=== PATIENT | female | born 1980 | race Caucasian/White ===

== ENCOUNTER 2023-05-24 14:15 | Outpatient (RCR) | payer OTHER, SELFPAY ==
--- NOTE | 2023-04-12 11:25 | PCPTNOTE ---
Patient called & cancelled scheduled appointment this date due to other commitments
--- NOTE | 2023-04-20 12:07 | OPREHPOC ---
Outpatient Therapy Plan of Care This is a Multidisciplinary Plan of Care that may contain components documented by all disciplines (PT, OT, and ST.) PT Problem 1 PT Problem #1 Knowledge Deficit PT Goal 1 Goal Patient will demonstrate independence with home exercise program PT Problem 2 PT Problem #2 Pain PT Goal 1 Goal 1. Patient will report pain as 2/10 with walking. 2. Patient will report decrease radicular symptoms into bilateral lower extremities. PT Problem 3 PT Problem #3 Impaired Strength PT Goal 1 Goal 1. Patient will perform 15 reps bilateral straight leg raises 2. Patient will perform 15 reps prone hip extension PT Problem 4 PT Problem #4 Impaired Endurance PT Goal 1 Goal 1. Patient will tolerate sitting upright at home for 30 minutes at a time due to relief in pain.
--- NOTE | 2023-04-20 12:07 | PTOPEVAL1 ---
Assessment and note entered by Basilia Guerrero, PT Evaluation Information Assessment Status Evaluation Diagnosis back Onset 1-2 months ago Subjective Information Patient referred to physical therapy due to back pain. Patient reports 1-2 months ago she bent over and heard a pop and was in such severe pain that she had to be Alice lifted out of bed into the ambulance. Patient reports that with immobility her pain can decrease however with sitting or walking pain increases. Patient currently reports pain as 6/10 in low back with shooting pain into bilateral hips and legs with L more so than R. Patient back pain has caused patient to spent increased time in bed, unable to perform daily chores secondary to pain. Patient reports she has anxiety as well. Subjective portion of eval performed with patient in sidelying due to pain. Patient goal is to decrease back pain and return to activity within home. Reported Pain Level Pain Score 6: Self Report Assessment PT Clinical Summary Patient is 42 year old female referred to physical therapy due to back pain. Patient reports pain currently limits her ability to ambulate in home or community as well as perform daily chores at home. Patient states she spends majority of her day laying in bed because supine is the only position that provides relief. Patient presents with decreased lumbar mobility, bilateral lower extremity and core weakness, radicular symptoms into bilateral lower extremities at this time. Anxiety and muscle guarded reported by patient throughout session, stating she does not know how to relax her body and feels her muscles being tight. Patient reporting pain as 6/10 start of session, decreased to 2/10 with manual techniques, heat, and therapeutic exercise. Patient would benefit from skilled PT services 2x/wk for 4 weeks for core/lower extremity strengthening, lumbar/ lower extremity mobility, manual techniques in order to reduce pain and allow patient to return to prior level of function. Plan of Care Interventions Aquatic Therapy,Electrical Stimulation,Gait Training,Hot Pack/Cold Pack,Manual Therapy,Neuro Re-education,Patient/Caregiver Education,Therapeutic Activities,Therapeutic Exercise,Ultrasound Other Interventions cupping, taping, iastm PT Services Indicated
--- NOTE | 2023-04-24 09:28 | PCPTNOTE ---
Pt. fell and hurt her ankle and canceled today's (04/24/23) appointment.
--- NOTE | 2023-04-25 11:44 | PCPTNOTE ---
Returned patient's phone call regarding if she can continue doing back exercises after her fall. Patient educated that she is ok to do breathing exercise, single knee to chest, and hip abduction at this time as patient denies back or hip involvement with fall. Patient educated to call MD if pain in ankle worsens or spreads to other area.
--- NOTE | 2023-05-01 11:15 | PCPTNOTE ---
Patient canceled 05/01/23 appointment as she had another fall and wants to follow-up with her physician.
--- NOTE | 2023-05-01 11:28 | PCPTNOTE ---
Physical therapist called patient per patient's and front desks request as the patient's physical therapist was off today. The patient was told she can go to the MD is she feels likes she needs to as she is having falls. Patient also told she can use a walker if she feels like she needs to use on for safety to prevent further falls. Patient also was instructed on how to go up and down her one step with a walker.
--- NOTE | 2023-05-18 10:29 | PTOPPROG ---
Assessment and note entered by Basilia Guerrero, PT Evaluation Information Assessment Status Progress Diagnosis low back pain Onset 1-2 months ago Subjective Information Patient has had limited therapy since initial evaluation due to frequent falls and transportation problems. Patient reports she has figured out a way to ensure transportation with her son and would like to continue with therapy. Patient goals are to decrease back and hip pain. Patient has began to use walker due to falls since being evaluated by therapy, reports 2 falls occurred on stairs and 2 were forward falls. Assessment PT Clinical Summary Re evaluation completed on this date. Patient continues to report significant back pain, anxiety noted throughout re eval. Patient continues to present with core and lower extremity weakness, decrease muscle length of hamstring/piriformis musculature. Patient has had frequent falls recently and has began to use walker for mobility. Recommending continued therapy services 1-2x/wk for 4 weeks to decrease pain and improve safety with mobility in community. Goal upgraded to include balance impairments with goal to return to ambulation without AD. Plan of Care Interventions Electrical Stimulation,Gait Training,Hot Pack/Cold Pack,Manual Therapy,Neuro Re-education,Patient/ Caregiver Education,Therapeutic Activities, Therapeutic Exercise,Ultrasound Other Interventions cupping, taping, iastm PT Services Indicated Yes Treatment Frequency and 1-2x/wk for 4 weeks Duration These treatments will address the objective and functional deficits as defined above. The patient will be advanced safely and appropriately in order for the patient to progress towards his/her prior level of function. Additional exercises will be introduced and as well as a comprehensive home exercise program upon discharge, if needed, ?to ensure carryover of functional gains achieved in the clinic. This treatment plan has been reviewed and agreement upon by the patient.
--- NOTE | 2023-05-18 10:29 | OPREHPOC ---
Outpatient Therapy Plan of Care This is a Multidisciplinary Plan of Care that may contain components documented by all disciplines (PT, OT, and ST.) PT Problem 1 PT Problem #1 Knowledge Deficit PT Goal 1 Goal Patient will demonstrate independence with home exercise program Progress Partially Met PT Problem 2 PT Problem #2 Pain PT Goal 1 Goal 1. Patient will report pain as 2/10 with walking.- not met goal continues 2. Patient will report decrease radicular symptoms into bilateral lower extremities.- not met goal continues PT Problem 3 PT Problem #3 Impaired Strength PT Goal 1 Goal 1. Patient will perform 15 reps bilateral straight leg raises- not met goal continues 2. Patient will perform 15 reps prone hip extension- not met goal continues PT Problem 4 PT Problem #4 Impaired Endurance PT Goal 1 Goal 1. Patient will tolerate sitting upright at home for 30 minutes at a time due to relief in pain.- not met goal continues PT Problem 5 PT Problem #5 Impaired Balance PT Goal 1 Goal 1. Patient will report now falls since re evaluation. 2. Patient will return to gait without AD. 3. Patient will ascend/descend 2 steps with supervision.
--- NOTE | 2023-06-01 10:19 | PCPTNOTE ---
05/18 PT charge error. PT high complexity eval code has been removed.
--- NOTE | 2023-06-27 13:11 | PTOPDC ---
Assessment and note entered by Basilia Guerrero, PT Evaluation Information Assessment Status Discharge - Pt Not Present Diagnosis low back pain Onset 1-2 months ago Subjective Information Patient has had limited therapy since initial evaluation due to frequent falls and transportation problems. Patient reports she has figured out a way to ensure transportation with her son and would like to continue with therapy. Patient goals are to decrease back and hip pain. Patient has began to use walker due to falls since being evaluated by therapy, reports 2 falls occured on stairs and 2 were forward falls. Assessment PT Clinical Summary Patient referred to PT due to back pain. Patient has shown up for one visit since progress update and has since not shown for therapy visits. Will DC from PT at this time. Plan of Care PT Services Indicated Yes
== END 2023-06-27 14:40 | disposition home or self-care (01) ==
LOC: ANHPT 14:15
PROVIDERS: PCP Physician Assistant; Visit Provider Physician Assistant
DX: M54.42 Lumbago with sciatica, left side (principal); M54.41 Lumbago with sciatica, right side; G89.29 Other chronic pain
CPT/HCPCS: 97110; 97140; 97162; 97163; 97530; 99199

== ENCOUNTER 2025-08-10 14:09 | Emergency (ER) | payer OTHER, SELFPAY ==
--- NOTE | ~2025-08-10 | XR_ITS ---
EXAMINATION: XR chest 2V, 08/10/2025 14:38 CDT HISTORY: chest pain COMPARISON: No comparisons available. Technique: 2 views obtained. Findings: The lungs are clear, no effusion. No pneumothorax. Heart is normal size. Mediastinal and hilar contours are within normal limits. Bony thorax no acute abnormality. Impression: No acute cardiopulmonary abnormality. Reviewed, dictated and finalized at location P. Impression: No acute cardiopulmonary abnormality.
[2025-08-10 14:13] VITALS: BP 130/65; PULSE 88; RESP 20; TEMP 36.4; O2SAT 96
--- NOTE | 2025-08-10 14:20 | ECG_ITS ---
Test Date: 2025-08-10 14:24:18 Measurements Intervals [place] Rate: 92 P: 43 TN: 161 QRS: 8 QRSD: 91 T: 11 QT: 363 QTc: 450 Interpretive Statements SINUS RHYTHM DELAYED PRECORDIAL R/S TRANSITION BORDERLINE T WAVE ABNORMALITY- ANT/INF LEADS BORDERLINE ECG No previous ECG available for comparison Electronically Signed On 08-10-2025 19:25:26 CDT by Varghese Yao D.O.
[2025-08-10 14:39] LABS: Hematocrit 41.0 % (37.0-47.0); Hemoglobin 14.0 g/dL (12.0-15.0); Immature Granulocyte Percent A 0.3 % (0-0.5); Lymphocytes Absolute Auto 2.68 K/mm3 (0.9-3.2); Mean Corpuscular HGB Conc 34.1 g/dl (32-36); Mean Corpuscular Hemoglobin 30.0 pg (26-34); Mean Corpuscular Volume 87.8 fl (80-100); Nucleated Red Blood Cells Absolute Auto 0.000 K/mm3 (0.0-0.012); Nucleated Red Blood Cells Perc 0.0 % (0.0-0.2); Platelet Count Result 295 k/mm3 (150-375); Red Blood Count 4.67 M/mm3 (4.2-5.4); White Blood Count 11.0 K/mm3 (4.5-10.0)
[2025-08-10 14:50] LABS: INR 1.0; Prothrombin Time 13.1 Seconds (11.1-14.7)
[2025-08-10 14:51] LABS: Partial Thromboplastin Time 25.3 Seconds (22.3-36.8)
[2025-08-10 15:00] LABS: Alanine Aminotransferase 23 U/L (6-35); Albumin Level 3.7 g/dL (3.5-5.1); Alkaline Phosphatase 118 U/L (38-126); Anion Gap 9 mmol/L (4-12); Aspartate Amino Transferase 23 U/L (14-36); Bilirubin,Total 0.5 mg/dL (0.2-1.3); Blood Urea Nitrogen 7 mg/dL (7-17); Calcium 9.5 mg/dL (8.4-10.2); Carbon Dioxide 20 mmol/L (22-30); Chloride 105 mmol/L (98-107); Estimated CRCL calculation 112 ml/min; Estimated Glomerular Filt Rate > 60; Glucose 129 mg/dL (65-110); Lipase 53 U/L (23-300); Potassium 3.7 mmol/L (3.4-5.0); Sodium 134 mmol/L (137-145); Total Protein 7.2 g/dL (6.3-8.2)
[2025-08-10 15:07] LABS: Troponin I < 0.012 ng/mL (0.000-0.034)
--- OUTSIDE RECORDS SUMMARY | 2025-08-10 15:33 | XMS_ITS | Encounter Summary ---
Author Organization [facility] Address [address] [place] [address] Phone Care Team Providers Care Stage Technician Name Role Phone Sonali Retana Primary Care Provider + Reason for Visit * Reason Comments Medication Refill Encounter Details Date Type Department Care Team (Late st Contact Info) Description 04/20/2021 Refill [facility] [address] [place] [id number] Sonali Retana, PAC [address] [place] [address] Medication Refill Social History Tobacco Use Types Packs/Day Years Used Date Smoking Tobacco: Every Day Cigarettes 1 23 Smokeless Tobacco: Never Alcohol Use Standard Drinks/Week Comments No 0 (1 standard drink = 0.6 oz pur e alcohol) PHQ-2 Answer Date Recorded Total Score - Questions 1-9 0 06/2020 Education Answer Date Recorded What is the highest level of school you have completed or the highest degree you have received? Bachelor's degree (e.g., BA, AB, BS) 08/06/2020 Sexually Active Control Partners Comments Yes Female Comments No Sex and Gender Information Value Date Recorded Sex Assigned at Not on file Legal Sex Female 10:17 PM CDT Gender Identity Not on file Sexual Orientation Not on file documented as of this encounter Miscellaneous Notes * Telephone Encounter - Tequila Costa RN - 04/20/2021 11:16 AM CDT Medication failed the protocol, provider to review and approve the medication order if appropriate. Last OV 03/09/21, F/U None, Last Vitamin D lab 09/25/20 result 14, no future labs, Last Rx Vitamin D 12/22/20, Last Rx per [place] PDMP Review Clonazepam 03/20/21 Tequila SUAZO Requested Prescriptions Pending Prescriptions Disp Refills ergocalciferol (VITAMIN D) 05518 UNIT Capsule [Pharmacy Med Name: VITAMIN D2 1.25MG(50,000 UNIT)] 4Capsule 2 Sig: TAKE 1 CAP BY MOUTH ONCE A WEEK FOR 12 DOSES. [facility] Off-Protocol Failed - 04/20/2021 11:14 AM Failed - Medication not assigned to a protocol, review manually. Passed - Valid encounter within last 12 months Past Office Visits Recent Outpatient Visits 1 month ago Sinusitis, unspecified chronicity, unspecified location [facility] Sonali Boyd PAC 4 months ago Irregular menses [facility] Sonali Boyd PAC 6 months ago Shortness of breath [facility] Sonali Boyd PAC 6 months ago COVID-19 [facility] Sonali Boyd PAC 6 months ago COVID-19 [facility] [place] Upcoming Appointments [facility] - Recent and Past Visits Recent Visits Date Type Provider Dept 03/09/21 Sonali Causey PAC [facility] 11/30/20 Office Visit Sonali Retana, PAC [facility] 10/19/20 Telemedicine Sonali Retana PAC [facility] 10/16/20 Telemedicine Sonali Retana, PAC [facility] 10/07/20 Telemedicine Sonali Retana, PAC [facility] 09/23/20 Office Visit Sonali Retana, PAC [facility] 08/06/20 Telemedicine Sonali Retana, PAC [facility] 07/14/20 Office Visit Sonali Retana, PAC [facility] 05/12/20 Office Visit Sonali Retana, PAC [facility] 03/04/20 Telemedicine Sonali Retana, PAC [facility] Showing recent visits within past 460 days with a meds authorizing provider and meeting all other requirements Future Appointments No visits were found meeting these conditions. Showing future appointments within next 90 days with a meds authorizing provider and meeting all other requirements clonazePAM (KlonoPIN) 0.5 MG Tablet [Pharmacy Med Name: CLONAZEPAM 0.5 MG TABLET] 90 Tablet 0 Sig: TAKE 1 TABLET BY MOUTH THREE TIMES A DAY [facility] Not Delegated - Psychiatry: [employer] - clonazepam Failed - 04/20/2021 11:14 AM Failed - This refill cannot be delegated Passed - Valid encounter within last 6 months Past Office Visits Recent Outpatient Visits 1 month ago Sinusitis, unspecified chronicity, unspecified location [facility] Sonali Boyd PAC 4 months ago Irregular menses [facility] [place] 6 months ago Shortness of breath [facility] Sonali Boyd PAC 6 months ago COVID-19 [facility] [place] 6 months ago COVID-19 [facility] [place] Upcoming Appointments [facility] - Recent and Past Visits Recent Visits Date Type Provider Dept 03/09/21 Sonali Causey, PAC [facility] 11/30/20 Office Visit Sonali Retana, PAC [facility] 10/19/20 Telemedicine Sonali Retana, PAC [facility] 10/16/20 Telemedicine Sonali Retana, PAC [facility] 10/07/20 Telemedicine Sonali Retana, PAC [facility] 09/23/20 Office Visit Sonali Retana, PAC [facility] 08/06/20 Telemedicine Sonali Retana, PAC [facility] 07/14/20 Office Visit SoniaSonali shannon, PAC [facility] 05/12/20 Office Visit SauloSonali vega, KVNG [facility] 03/04/20 Telemedicine MazinSonaliRosanne, PAC [facility] [place] Showing recent visits within past 460 days with a meds authorizing provider and meeting all other requirements Future Appointments No visits were found meeting these conditions. Showing future appointments within next 90 days with a meds authorizing provider and meeting all other requirements documented in this encounter Plan of Treatment Upcoming Encounters Date Type Department Care Team (Late st Contact Info) Description 08/27/2025 10:00 AM CDT Office Visit [facility] [address] [place] [address] Sonali Retana PAC [address] [place] [address] Sabas Mukherjee MD [address] [id number] 09/23/2025 3:40 PM PUBLIC HEALTH TECHNOLOGIST Office Visit [facility] [place] [address] [place] [address] Sonali Retana PAC [address] [place] [address] documented as of this encounter Visit Diagnoses Diagnosis Low vitamin D level Anxiety Anxiety state, unspecified documented in this encounter Additional Health Concerns Infection Onset Date Last Indicated Resolved Time COVID - 19 10/25/2021 10/25/2021 11/14/2021 12:1 6 AM PUBLIC HEALTH TECHNOLOGIST COVID - 19 12/13/2022 12/13/2022 12/14/2022 8:04 AM PUBLIC HEALTH TECHNOLOGIST Assessment Noted Time PHQ-9 Depression Total Score: 0 07/14/20 20 4:06 PM CDT documented as of this encounter Care Teams Stage Technician Relationship Specialty Start Date End Date Sonail Retana, KVNG [address] [place] [address] PCP - General Physician Special Weapons Unit Officer 10/19/18 documented as of this encounter
--- OUTSIDE RECORDS SUMMARY | 2025-08-10 15:33 | XMS_ITS | Clinical Summary ---
Author Organization [facility] Address [address] [place] [address] Phone Care Team Providers Care Hydramatic Mechanic Name Role Phone SaulojoaoSonali shannon KVNG Primary Care Provider + Allergies Active Allergy Reactions Criticality Noted Date Comments Codeine Nausea,Vomiting Low 12/14/2015 Reaction: Nausea, Vomiting, Risperidone Hallucinations 01/06/2021 Medications FLUoxetine (PROZAC) 40 MG Capsule Take 80 mg by mouth daily. Active QUEtiapine (SEROquel) 25 MG Tablet Take 25 mg by mouth 2 times daily. Active busPIRone HCl (BUSPAR) 30 MG Tablet Take 30 mg by mouth 2 times daily. 3 Active ergocalciferol (VITAMIN D) 80933 UNIT CapsuleIndicati ons:Low vitamin D level TAKE 1 CAPSULE BY MOUTH ONE TIME PER WEEK 4 Capsule 2 5 Active famotidine (PEPCID) 20 MG Tablet TAKE 1 TABLET BY MOUTH TWICE A DAY 60 Tablet 5 5 Active buPROPion SR (WELLBUTRIN SR) 100 MG TABLET SR 12 HR 5 Active atorvastatin (LIPITOR) 20 MG TabletIndicatio ns:Hyperlipidem ia Take 1 Tablet by mouth nightly. Indications: High Amount of Fats in the Blood 90 Tablet 3 5 Active fluticasone (FLONASE) 50 MCG/ACT Suspension 2 Sprays by Nasal route daily. Use in each nostril as directed. 18.2 mL 3 5 Active clonazePAM (KlonoPIN) 1 MG TabletIndicatio ns:Anxiety Take 1 Tablet by mouth 3 times daily. 90 Tablet 5 Active clonazePAM (KlonoPIN) 1 MG TabletIndicatio ns:Anxiety Take 1 Tablet by mouth 3 times daily. 90 Tablet 5 07/19/20 25 Discontinu ed(Reorder ) Active Problems Problem Noted Date Diagnosed Date Hyponatremia 12/14/2022 Intractable back pain 12/13/2022 GERD (gastroesophageal reflux disease) 3 Acute bilateral low back pain with bilateral sci atica 12/13/2022 Menorrhagia with regular cycle 04/16/2018 Anxiety 01/20/2016 Depressed 01/20/2016 Tobacco dependence syndrome 01/20/2016 Irritable bowel syndrome with diarrhea 6 Encounters Date Type Department Care Team Description 07/19/2025 MyChart [facility] [place] [address] Sonali Retana PAC Medication Renewal Reviewed 06/18/2025 Telephone [facility] Mammography [address] [place] [address] Sonali Retana PAC 06/16/2025 11:00 AM CDT [facility] [place] [address] Sonali Retana PAC Anxiety (Primary Dx); High risk medication use; Hyperlipidemia, unspecified hyperlipidemia type; Breast pain; Dysfunction of both eustachian tubes; Vitamin D deficiency Discharge Disposition: Discharged to home or Selfcare 06/16/2025 MyChart [facility] [place] [address] Sonali Retana PAC Medication Renewal Reviewed 06/14/2025 Travel 06/08/2025 [facility] [place] [address] Sonali Retana, PAC Medication Refill 06/06/2025 Refill [facility] [place] [address] Sonali Retana, PAC Medication Refill from Last 3 Months Immunizations Immunization Administration Dates Next Due Covid-19, Mrna, Lnp-s, Pf, 3 0 Mcg/0.3 Ml Dose (WeGame) 06/15/2021,05/25/2021 Influenza Vaccine, Quadrivalent, PF 09/07,07/14/2020,08/15/2019,2017 MMR Vaccine 08/11/2020,07/14/2020 Family History Medical History Relation Name Comments Alcohol Abuse Father Asthma Father Endometriosis Maternal Aunt 1 Zenaida Endometriosis Maternal Aunt 2 Zenaida Diabetes Maternal Grandmother Alcohol Abuse Mother Mom Cancer Mother Mom from low g rade serous ovarion cancer Depression Mother Mom Osteoarthritis Mother Mom Rashes/Skin Problems Mother Mom Rheumatoid Arthritis Mother Mom Relation Name Status Comments Father Alive Maternal Aunt 1 Zenaida Alive Maternal Aunt 2 Zenaida Alive Maternal Grandmother Alive Mother Mom Alive Social History Tobacco Use Types Packs/Day Years Used Date Smoking Tobacco: Every Day Cigarettes 1 23 Last attempted to quit: 02/12/2020 Smokeless Tobacco: Never Tobacco Cessation:Ready to Q uit: Yes; Counseling Given: Not Answered Comments:Iris been smoking since i was 11 Alcohol Use Standard Drinks/Week Comments No 0 (1 standard drink = 0.6 oz pur e alcohol) [facility] Utilities Answer Date Recorded In the past 12 months has Data Impact, oil, or water Inductly threatened to shut off services in your home? Patient declined 04/21/2024 Social Connection and Isolation Panel Answer Date Recorded In a typical week, how many times do you talk on the phone with family, friends, or neighbors? Patient declined 04/21/2024 How often do you get togethe r with friends or relatives? Patient declined 04/21/2024 How often do you attend lutheran or scientology serv ices? Never 04/21/2024 Do you belong to any clubs o r organizations such as lutheran groups, unions, fraternal or athletic groups, or school groups? No 04/21/2024 How often do you attend meet ings of the clubs or organizations you belong to? Patient declined 04/21/2024 Are you , , di vorced, , never , or living with a partner? Never 04/21/2024 AUDIT-C Answer Date Recorded Q1: How often do you have a drink containing alcohol? Never 04/21/2024 Q2: How many drinks containi ng alcohol do you have on a typical day when you are drinking? Patient does not drink Q3: How often do you have si x or more drinks on one occasion? Never 04/21/2024 Overall Financial Resource Strain (CARDIA) Answe r Date Recorded How hard is it for you to pa y for the very basics like food, housing, medical care, and heating? Patient declined 04/21/2024 PHQ-2 Answer Date Recorded Total Score - Questions 1-9 18 10/07 [facility] - Occupational Stress Questionnaire Answer Date Recorded Do you feel stress - tense, restless, nervous, or anxious, or unable to sleep at night because your mind is troubled all the time - these days? Patient declined 04/21/2024 Exercise Vital Sign Answer Date Recorde d On average, how many days pe r week do you engage in moderate to strenuous exercise (like a brisk walk)? 0 days 04/21/2024 On average, how many minutes do you engage in exercise at this level? 0 min 04/21/2024 Hunger Vital Sign Answer Date Recorded Within the past 12 months, y ou worried that your food would run out before you got the money to buy more. Patient declined Within the past 12 months, t he food you bought just didn't last and you didn't have money to get more. Patient declined PRAPARE - Transportation Answer Date Re corded In the past 12 months, has l ack of transportation kept you from medical appointments or from getting medications? Yes 04/06 In the past 12 months, has l ack of transportation kept you from meetings, work, or from getting things needed for daily living? No 04/21/2024 Housing Stability Vital Sign Answer Lan e Recorded In the last 12 months, was t here a time when you were not able to pay the mortgage or rent on time? Patient declined 04/21/20 24 In the past 12 months, how m any times have you moved where you were living? 0 04/21/2024 At any time in the past 12 m [facility], were you homeless or living in a snf (including now)? No 04/21/2024 Education Answer Date Recorded What is the highest level of school you have completed or the highest degree you have received? Bachelor's degree (e.g., BA, AB, BS) 08/06/2020 Sexually Active Control Partners Comments Not Currently Abstinence Female, Male Comments No Sex and Gender Information Value Date Recorded Sex Assigned at Not on file Legal Sex Female 10:17 PM CDT Gender Identity Not on file Sexual Orientation Not on file Last Filed Vital Signs Vital Sign Reading Time Taken Comments Blood Pressure 130/84 06/16/2025 10:56 AM CDT Pulse 102 06/16/2025 10:56 AM CDT Temperature 36.6 C (97.8 F) 06/16/2025 10:56 AM CDT Respiratory Rate 18 02/15/2023 9:33 AM CDT Oxygen Saturation 96% 06/16/2025 10:56 AM CDT Inhaled Oxygen Concentration - - Weight 110.2 kg (243 lb) 06/16/2025 10:56 AM CDT Height 165.1 cm (5' 5) 06/16/2025 10:56 AM CDT Body Mass Index 40.44 06/16/2025 10:56 AM CDT Plan of Treatment Upcoming Encounters Date Type Department Care Team (Late st Contact Info) Description 08/27/2025 10:00 AM CDT [facility] Visit [facility] [place] [facility] [place] [place] [phone] Sonali Retana PAC [address] [place] [address] Sabas Mukherjee MD #2 [facility] [address] [address] 09/23/2025 3:40 PM FOUNTAIN CLERK Office Visit [facility] [place] [address] Sonali Retana, PAC [address] [place] [address] Health Maintenance Due Date Last Done Comments TdaP Immunization 1982 Hepatitis B Immunization (1 of 3 - 19+ 3-dose series) 2001 Pneumococcal Immunization Combined (1 of 2 - PCV) 2001 Human Papillomavirus (HPV) Immunization (1 - 3-dose SCDM series) 2009 Mammogram 10/17/2018 10/17/2017 Pap Smear 01/07/2024 01/06/2021, 11/2019, 05/12/2020, Additional history exists Cervical Cancer Screening (CCS) 05/12/2025 HPV/Cotest 05/12/2025 05/12/2020 Influenza Immunization (#1) 07/07/202509/07, 07/14/2020, 08/15/2019, Additional history exists SARS-COV-2 Immunization ( season) 2025 06/15/2021, 05/25/2021 Respiratory Syncytial Virus (RSV) Immunization (Adult) (1 - 1-dose 75+ series) 2057 Discussion re Starting/Frequency of Mammograms Completed 10/17/2017 Hepatitis C Virus (HCV) Screening Completed 11/16/2023 Meningococcal Immunization (ACWY) Aged Out No longer eligible based on patient's age to complete this topic Rotavirus Immunization Aged Out No lo nger eligible based on patient's age to complete this topic Medical Devices Implanted Type Area Boarding Room Fixer Device Identifier Shelf Expiration Date Model / Serial / Lot Mcpherson Beveled Grommet Tube, Fluoroplastic Implanted:Qty: 2 on 01/05/2017 by Mo Foster DO at [facility] Bilatera l: Ear [employer] 10/11/2024 [id number] / / [id number] Procedures Procedure Name Priority Date/Time Associated Diagnosis Comments URINE DRUG SCREEN Routine 06/16/2025 Anxiety High risk medication use HEPATITIS C ANTIBODY Routine 11/16/2023 10:33 AM FOUNTAIN CLERK Encounter for hepatitis C screening test for low risk patient HUMAN PAPILLOMA VIRUS (HPV) Routine 05/12/2020 3:44 PM CDT Well woman exam PATHOLOGY CYTOLOGY GAME TECHNICIAN Routine 05/12/2020 3:44 PM CDT Well woman exam ROSSY DIAG BILATERAL DIGITAL W CAD Routine 10/17/2017 Left breast mass from Last 3 Months or Most Recently Relevant to Health Maintenance Results * URINE DRUG SCREEN (06/16/2025) Urine 06/16/2025 us Sonali Retana PAC URINE ORDERABLES Final R esult * HEPATITIS C ANTIBODY (11/16/2023 10:33 AM FOUNTAIN CLERK) hepatitis C antibody 0.10 <1 S/CO [facility] ARCH [id number] 11/16/2023 9:40 PM FOUNTAIN CLERK [facility] Comment: Signal/Cutoff ratio < 0.79 is Nondetected Signal/Cutoff ratio 0.80-0.99 is Grayzone Signal/Cutoff ratio > 0.99 is Detected Supplemental assays are recommended if signal/cutoff ratio is >/=1.00. Signal/cutoff ratio result >/= 5.00 is 97% predictive of positivity for recombinant immunoblot assay (RIBA) and will be reported to the [place] Department of Public Health as required. Blood Venipuncture / Unknown 11/16/2023 10:33 AM FOUNTAIN CLERK 11/16/2023 10:33 AM FOUNTAIN CLERK us Sonali Retana PAC CHEMISTRY ORDERABLES Fin al Result [facility] [address] [place] [address], [place] * PATHOLOGY CYTOLOGY GAME TECHNICIAN (05/12/2020 3:44 PM CDT) SPECIMEN ADEQUACY Satisfactory for evaluation. Endocervical/transf ormation zone component is absent. 06/04/2020 2:18 PM CDT [facility] DESCRIPTIVE DIAGNOSIS NEGATIVE FOR INTRAEPITHELIAL LESIONS OR MALIGNANCY. 06/04/2020 2:18 PM CDT [facility] at 1418 CDT AUTOMATED EXAMINATION Analysis of this sample has been assisted by an automated imaging and review system ([employer] System, [employer], [place], [place]). This case is further evaluated and finalized by a pr intern and/or pathologist. 06/04/2020 2:18 PM CDT [facility] DISCLAIMER The PAP smear is a screening test designed to detect cancerous or precancerous cells of the uterine cervix. It is one of the best means available for detection of cervical cancer but still carries an inherent false-negative rate. The consequences of a false-negative PAP result can be minimized by adhering to current screening guidelines. The following are general guidelines recommended by the ACS, ASCP, ASCCP, and ACOG: PAP testing is recommended every three years for women 21-29, Co-Testing, a PAP test in conjunction with an HPV (Human Papillomavirus) test for women ages 30-65, and no PAP or HPV testing for women under the age of 21 or older than 65 unless clinically indicated. 06/04/2020 2:18 PM CDT [facility] Case Report Gynecologic Cytology Report Case: [id number] Authorizing Provider: Sonali Retana PAC Collected: 05/12/2020 03:44 PM Ordering Location: [facility] Received: 05/12/2020 03:44 PM [facility] First Screen: Shea Sheppard Rescreen: Aleksandr Morales Specimen: TP Screen, Cervix/Endocervix 06/04/2020 2:18 PM CDT [facility] HPV Reflex if ASCUS? No 06/04/2020 2:18 PM CDT [facility] Comment:cotesting Other CERVIX UTERI STRUCTURE / Unknown Non-Phlebotomy Collection / Unknown 05/12/2020 3:44 PM CDT 05/12/2020 3:44 PM CDT us Sonali Retana PAC PATHOLOGY/CYTOLOGY ORDER FLACO Final Result [facility] [address] [place] [address], [place] * (ABNORMAL) HUMAN PAPILLOMA VIRUS (HPV) (05/12/2020 3:44 PM CDT) HPV OTHER HIGH RISK TYPES, PCR POSITIVE(A) NEGATIVE 05/14/2020 3:11 PM CDT [facility] Comment: Positive for one or more of the following Other High HPV types: 31, 33, 35, 39, 45, 51, 52, 56, 58, 59, 66, and 68. False-positive results have been reported with molecular assays. If these positive results are discordant with clinical/cytohistologic findings, repeat testing may be considered after an appropriate interval. HPV TYPE 16 NEGATIVE NEGATIVE 05/14/2020 3:11 PM CDT [facility] Comment: A negative high-risk HPV result does not exclude the possibility of future cytologic HSIL or underlying CIN2-3 or cancer. The presence of PCR inhibitors may cause false negative or invalid results. If concentrations of whole blood in the sample exceed 1.5% (dark red or brown coloration) in PreservCyt solution, there is a likelihood of obtaining a false-negative result. HPV TYPE 18 NEGATIVE NEGATIVE 05/14/2020 3:11 PM CDT [facility] Comment: A negative high-risk HPV result does not exclude the possibility of future cytologic HSIL or underlying CIN2-3 or cancer. The presence of PCR inhibitors may cause false negative or invalid results. If concentrations of whole blood in the sample exceed 1.5% (dark red or brown coloration) in PreservCyt solution, there is a likelihood of obtaining a false-negative result. Other Non-Phlebotomy Collection / Unknown 05/12/2020 3:44 PM CDT 05/12/2020 3:44 PM CDT Narrative [facility] - 05/14/2020 3:11 PM CDT Performed by Real-Time Polymerase Chain Reaction (PCR) on the Jennifer Denise 4800. This assay has been validated for use with post-aliquot samples from the [employer] processor. us Rosanne Fritcher PAC LAB SEND OUTS Final Re sult [facility] [address] [place] [address], [place] * ROSSY DIAG BILATERAL DIGITAL W CAD (10/17/2017) Anatomical Region Laterality Modality breast Bilateral Mammography us Anni Rodriguez PAC IMG MAMMO ORDERABLES Raya l Result from Last 3 Months or Most Recently Relevant to Health Maintenance Insurance MEDICAID [place] Advance Directives * Full Code (Latest Code Status on File) Date Activated Date Inactivated Comments 12/27/2022 1:25 PM * Full Code Date Activated Date Inactivated Comments 12/13/2022 8:25 PM 12/14/2022 5:40 PM CPR-Full Treat ment: FULL ARREST: Attempt Resuscitation/CPR wit intubation and mechanical ventilation. PRE-ARREST: Use entire range of life support measures to stabilize the patient. Care Teams Hydramatic Mechanic Relationship Specialty Start Date End Date Sonali Retana, PAC [address] [place] [address] PCP - General Physician Bobcat Driver/Labor 10/19/18
--- OUTSIDE RECORDS SUMMARY | 2025-08-10 15:33 | XMS_ITS | Encounter Summary ---
Author Organization [facility] Address [address] [place] [address] Phone Care Team Providers Care Physics Technician Name Role Phone Sonali Retana KVNG Primary Care Provider + Encounter Details Date Type Department Care Team (Late st Contact Info) Description 09/22/2021 Lab Requisition [facility] Services [address] [place] [phone] Sharon Arguelles, SENIOR PAINTER, OBSTETRICS GYN [address] [place] [address] Encounter for pre-employment examination Social History Tobacco Use Types Packs/Day Years [...] on file documented as of this encounter Plan of Treatment Upcoming Encounters Date Type Department Care Team (Late st Contact Info) Description 08/27/2025 10:00 AM CDT Office Visit [facility] - Ear, N[facility] & [facility]at - [place] #2 [facility] [address] Sonali Retana, PAC #2 [place] [address] Sabas Mukherjee MD #[address] [address] 09/23/2025 3:40 PM PIPE FITTER Office Visit [facility] - Family Medicine - [place] #2 [place] [address] Sonali Retana, PAC [address]2 [place] [address] documented as of this encounter Procedures Procedure Name Priority Date/Time Associated Diagnosis Comments QUANTIFERON-TB GOLD PLUS Routine 09/22/2021 8:00 AM PIPE FITTER Encounter for pre-employment examination MMRV PANEL Routine 09/22/2021 8:00 AM PIPE FITTER Encounter for pre-employment examination MUMPS IGG Routine 09/22/2021 8:00 AM PIPE FITTER Encounter for pre-employment examination HERPES ZOSTER (VARICELLA) IGG Routine 09/22/2021 8:00 AM PIPE FITTER Encounter for pre-employment examination RUBEOLA (MEASLES) IGG Routine 09/22/2021 8:00 AM PIPE FITTER Encounter for pre-employment examination RUBELLA IMMUNITY IGG Routine 09/22/2021 8:00 AM PIPE FITTER Encounter for pre-employment examination HEPATITIS B SURFACE ANTIBODY (HBSAB) Routine 09/22/2021 8:00 AM PIPE FITTER Encounter for pre-employment examination documented in this encounter Results * HERPES ZOSTER (VARICELLA) IGG (09/22/2021 8:00 AM PIPE FITTER) VARICELLA ZOSTER IGG 4.9 >=1.1 AI 09/22/2021 9:33 PM PIPE FITTER [facility] Blood No Phlebotomy Charged / Unknown 09/22/2021 8:00 AM PIPE FITTER 09/22/2021 12:15 PM PIPE FITTER Narrative [facility] - 09/22/2021 9:33 PM PIPE FITTER <= 0.8 Negative. No detectable VZV IgG antibody. 0.9 - 1.0 Equivocal >=1.1 Positive Antibody testing was performed by multiplex flow immunoassay on the BioPlex platform. us Sharon Arguelles SENIOR PAINTER, OBSTETRICS GYN IMMUNOLOGY ORDERABL ES Final Result Performing Organization Address [facility] Co de Phone Number [facility] [address] [place] [address], [place] * RUBEOLA (MEASLES) IGG (09/22/2021 8:00 AM PIPE FITTER) MEASLES AB IGG 4.5 >=1.1 AI 09/22/2021 9:33 PM PIPE FITTER [facility] Blood No Phlebotomy Charged / Unknown 09/22/2021 8:00 AM PIPE FITTER 09/22/2021 12:15 PM PIPE FITTER Narrative [facility] - 09/22/2021 9:33 PM PIPE FITTER <= 0.8 Negative. No detectable Measles IgG antibody. 0.9 - 1.0 Equivocal >=1.1 Positive Antibody testing was performed by multiplex flow immunoassay on the BioPlex platform. us Sharon L Behrends SENIOR PAINTER, OBSTETRICS GYN IMMUNOLOGY ORDERABL ES Final Result Performing Organization Address City/[facility] Co de Phone Number [facility] [address] [place] [address], [place] * RUBELLA IMMUNITY IGG (09/22/2021 8:00 AM PIPE FITTER) RUBELLA IMMUNITY Immune Immune, Invalid 09/22/2021 9:33 PM PIPE FITTER [facility] Blood No Phlebotomy Charged / Unknown 09/22/2021 8:00 AM PIPE FITTER 09/22/2021 12:15 PM PIPE FITTER Narrative [facility] - 09/22/2021 9:33 PM PIPE FITTER Antibody testing was performed by multiplex flow immunoassay on the BioPlex platform. Sharon Arguelles APRN, OBSTETRICS GYN CHEMISTRY ORDERABLE S Final Result Performing Organization Address [facility] de Phone Number [facility] [address] [place] [address], [place] * MUMPS IGG (09/22/2021 8:00 AM PIPE FITTER) Mumps Ab IgG 3.4 >=1.1 AI 09/22/2021 9:33 PM PIPE FITTER [facility] Blood No Phlebotomy Charged / Unknown 09/22/2021 8:00 AM PIPE FITTER 09/22/2021 12:15 PM PIPE FITTER Narrative [facility] - 09/22/2021 9:33 PM PIPE FITTER <= 0.8 Negative. No detectable Mumps IgG antibody. 0.9 - 1.0 Equivocal >=1.1 Positive Antibody testing was performed by multiplex flow immunoassay on the BioPlex platform. Sharon Arguelles APRN, OBSTETRICS GYN IMMUNOLOGY ORDERABL ES Final Result Performing Organization Address [facility] de Phone Number [facility] [address] [place] [address], [place] * QUANTIFERON-TB GOLD PLUS (09/22/2021 8:00 AM PIPE FITTER) NIL CONTROL 0.03 <8.01 IU/mL 09/24/2021 12:44 PM PIPE FITTER [facility] TB ANTIGEN 1 0.00 <0.35 IU/mL 09/24/2021 12:44 PM PIPE FITTER [facility] TB ANTIGEN 2 0.00 <0.35 IU/mL 09/24/2021 12:44 PM PIPE FITTER [facility] MITOGEN CONTROL >10.00 >0.49 IU/mL 09/24/20 12:44 PM [facility] INTEPRETATION TB NEGATIVE NEGATIVE, NEGATIVE (TB antigen response less than 25% of internal negative control value) 09/24/2021 12:44 PM [facility] Comment:No immune response t o Mycobacterium tuberculosis antigens was noted. M. tuberculosis infection unlikely. Blood No Phlebotomy Charged / Unknown 09/22/2021 8:00 AM PIPE FITTER 09/22/2021 12:15 PM PIPE FITTER Narrative [facility] - 09/24/2021 12:44 PM PIPE FITTER A POSITIVE QUANTIFERON-TB GOLD PLUS RESULT SHOULD NOT BE THE SOLE OR DEFINITIVE BASIS FOR DETERMINING INFECTION WITH M. TUBERCULOSIS. Diagnosing or excluding tuberculosis disease, and assessing the probability of LTBI, requires a combination of epidemiological, historical, medical and diagnostic findings (e.g., acid fast bacilli (AFB) smear and culture, chest xray) that should be taken into account when interpreting QFT-Plus results. Furthermore, the magnitude of the measured gamma interferon level cannot be correlated to stage or degree of infection, level of immune responsiveness, or likelihood for progression to active disease. The Nil control adjusts for background (e.g., elevated levels of circulating gamma interferon or presence of heterophile antibodies). The Mitogen control serves as an internal positive control and verifies each specimen tested can produce a gamma interferon response. Low mitogen may occur with insufficient lymphocytes, reduced lymphocyte activity due to improper specimen handling, filling/mixing of the Mitogen tube, or inability of the patient's lymphocytes to generate gamma interferon. Infection with other Mycobacteria, including M. kansasii, M. szulgai, and M. marinum, may cause positive results. A negative QuantiFERON-TB Gold Plus result does not preclude the possibility of M. tuberculosis infection or tuberculosis disease: false negative results can be due to stage of infection (e.g., specimen obtained prior to the development of cellular immune response), co-morbid conditions which affect immune function, or other individual immunological factors. The minimum number of lymphocytes required for a reliable test result has not been established and may also be variable. The performance of the [place] format of the QuantiFERON-TB Gold Plus test has not been extensively evaluated with specimens from the following groups of individuals: 1. Individuals who have impaired or altered immune function such as those who have HIV infection or AIDS; those who have transplantation managed with immunosuppressive treatment; or others who receive immunosuppressive drugs (e.g., corticosteroids, methotrexate, azathioprine, cancer chemotherapy); and those who have other clinical conditions: diabetes, silicosis, chronic renal failure, hematological disorders (e.g., leukemia and lymphomas), and other specific malignancies (e.g., carcinoma of the head or neck and lung). 2. Individuals younger than age 17 years 3. women us Sharon Arguelles APRN, OBSTETRICS GYN IMMUNOLOGY ORDERABL ES Final Result Performing Organization Address City/[facility] Co de Phone Number [facility] [address] [place] [address], [place] * HEPATITIS B SURFACE ANTIBODY (HBSAB) (09/22/2021 8:00 AM PIPE FITTER) HEPATITIS B SURFACE ANTIBODY 8,310.22 mIU/mL [facility] ARCH [id number] 09/22/2021 10:20 PM PIPE FITTER [facility] Comment: Detected Range: >12.00 Individual is considered immune to HBV infection Blood No Phlebotomy Charged / Unknown 09/22/2021 8:00 AM PIPE FITTER 09/22/2021 12:15 PM PIPE FITTER us Sharon Arguelles APRN, OBSTETRICS GYN CHEMISTRY ORDERABLE S Final Result Performing Organization Address [facility] Co de Phone Number [facility] [address] [place] [address], [place] documented in this encounter Visit Diagnoses Diagnosis Encounter for pre-employment examination Health examination of defined subpopulation documented in this encounter Additional Health Concerns Infection Onset Date Last Indicated Resolved Time COVID - 19 10/25/2021 10/25/2021 11/14/2021 12:1 6 AM PIPE FITTER COVID - 19 12/13/2022 12/13/2022 12/14/2022 8:04 AM PIPE FITTER Assessment Noted Time PHQ-9 Depression Total Score: 0 07/14/20 4:06 PM CDT documented as of this encounter Care Teams Physics Technician Relationship Specialty Start Date End Date Sonali Retnaa, [facility] [address] [place] [address] PCP - General Physician Bathroom Tiling Professional 10/19/18 documented as of this encounter
--- OUTSIDE RECORDS SUMMARY | 2025-08-10 15:33 | XMS_ITS | Encounter Summary ---
Author Organization [facility] Address [address] [facility] [place] [address] Phone Care Team Providers Care Mine Geologist Name Role Phone Sonali Retana Primary Care Provider + Reason for Visit * Reason Comments Medication Refill Encounter Details Date Type Department Care Team (Late Contact Info) Description 11/19/2023 Refill [facility] #2 [place] [address] Sonali Retana PAC [address]2 [place] [address] Medication Refill Social History Tobacco Use Types Packs/Day Years Used Date Smoking Tobacco: Every Day Cigarettes 1 23 Smokeless Tobacco: Never Alcohol Use Standard Drinks/Week Comments No 0 (1 standard drink = 0.6 oz pur e alcohol) PHQ-2 Answer Date Recorded Total Score - Questions 1-9 18 10/07 Education Answer Date Recorded What is the [...] Encounters Date Type Department Care Team (Late Contact Info) Description 08/27/2025 10:00 AM CDT Office Visit [facility] - Ear, Nose & Throat [facility] #2 [facility] [address] Sonali Retana, PAC [address] [facility] [address] Sabas Mukherjee MD #[address] [address] 09/23/2025 3:40 PM CRANE HOIST OR LIFT OPERATOR Office Visit [facility] - Family Medicine [facility] #[address] [place] [address] Sonali Retana, PAC [address] [place] [address] documented as of this encounter Visit Diagnoses Diagnosis Low vitamin D level documented in this encounter Additional Health Concerns Assessment Noted Time PHQ-9 Depression Total Score: 18 021 1:00 PM CRANE HOIST OR LIFT OPERATOR documented as of this encounter Care Teams Mine Geologist Relationship Specialty Start Date End Date Sonali Retana PAC [address] [facility] [address] PCP - General Physician Cotton Stomper 10/19/18 documented as of this encounter
--- OUTSIDE RECORDS SUMMARY | 2025-08-10 15:33 | XMS_ITS | Encounter Summary ---
Author Organization [facility] Address [address] [facility] [place] [address] Phone Care Team Providers Care Addiction Treatment Counselor Name Role Phone Sonali Retana Primary Care Provider + Reason for Visit * Reason Comments Medication Refill Encounter Details Date Type Department Care Team (Late st Contact Info) Description 01/11/2024 Refill [facility] - [facility] #2 [place] [address] Sonali Retana PAC [address] [place] [address] Medication Refill Social History Tobacco Use Types [...] encounter Miscellaneous Notes * Telephone Encounter - Erika Boyle RN - 01/11/2024 8:35 AM HAND COOPER HELPER Medication(s) refilled and signed per [facility] Chronic Medication Refill Standing Order for Pediatricand Adult Patients. Requested Prescriptions Pending Prescriptions Disp Refills famotidine (PEPCID) 20 MG Tablet [Pharmacy Med Name: FAMOTIDINE 20 MG TABLET] 60 Tablet 5 Sig: TAKE 1 TABLET BY MOUTH TWICE A DAY H2 Antagonists Protocol Passed - 01/11/2024 12:33 AM Passed - Visit with relevant provider in past 12 months or upcoming 90 days Recent Visits Date Type Provider Dept 10/23/23 Office Visit Sonali Retana PAC [facility] 07/26/23 Telemedicine Merle Gibson MD [facility] 02/15/23 Office Visit Sonali Retana PAC [facility] Showing recent visits within past 365 days and meeting all other requirements Future Appointments No visits were found meeting these conditions. Showing future appointments within next 90 days and meeting all other requirements COOPER HELPER documented in this encounter Plan of Treatment Upcoming Encounters Date Type Department Care Team (Late st Contact Info) Description 08/27/2025 10:00 AM CDT Office Visit [facility] - Ear, Nose & Throat [facility] #2 [place] [address] Sonali Retana PAC [address]2 [place] [address] Sabas Mukherjee MD #[address] [address] 09/23/2025 3:40 PM HAND COOPER HELPER Office Visit [facility] - Family Medicine [facility] #2 [place] [address] Sonali Retana PAC [address] [place] [address] documented as of this encounter Visit Diagnoses Not on filedocumented in this encounter Additional Health Concerns Assessment Noted Time PHQ-9 Depression Total Score: 18 021 1:00 PM HAND COOPER HELPER documented as of this encounter Care Teams Addiction Treatment Counselor Relationship Specialty Start Date End Date Sonali Retana PAC [address] [place] [address] PCP - General Physician Stopper Setter 10/19/18 documented as of this encounter
--- OUTSIDE RECORDS SUMMARY | 2025-08-10 15:33 | XMS_ITS | Encounter Summary ---
Author Organization [facility] Address [address] [facility] [place] [address] Phone Care Team Providers Care Fitter Machinist Name Role Phone Sonali Retana Primary Care Provider + Reason for Visit * Reason Comments Medication Refill Encounter Details Date Type Department Care Team (Late st Contact Info) Description 12/10/2020 Refill [facility] #2 [place] [address] Sonali Retana PAC [address] [place] [address] Medication Refill Social History Tobacco Use Types [...] on file Sexual Orientation Not on file COVID-19 Exposure Response Date Recorded In the last month, have you been in contact with someone who was confirmed or suspected to have Coronavirus / COVID-19? No / Unsure 12/01/2020 12:14 PM ORTHOPEDIC DESIGNER documented as of this encounter Miscellaneous Notes * Telephone Encounter - Tequila Costa RN - 12/10/2020 11:06 AM CST Sent to PCP OPEDIC DESIGNER * Telephone Encounter - Tequila Costa RN - 12/10/2020 11:05 AM CST Per nursing clinical judgement, provider to review and approve the medication(s) order(s) if appropriate. Last OV 11/30/20, F/U None, Last Rx 09/10/20 Pharmacy request new prescription Tequila SUAZO Requested Prescriptions Pending Prescriptions Disp Refills clonazePAM (KlonoPIN) 0.5 MG Tablet [Pharmacy Med Name: CLONAZEPAM 0.5 MG TABLET] 90 Tab 0 Sig: TAKE 1 TABLET BY MOUTH THREE TIMES A DAY Not Delegated - Psychiatry: Anxiolytics - clonazepam Failed - 12/10/2020 9:48 AM Failed - This refill cannot be delegated Passed - Valid encounter within last 6 months Past Office Visits Recent Outpatient Visits 1 week ago [facility] 1 month ago Shortness of breath [facility] 1 month ago [facility] 2 months ago COVID-[facility] 2 months ago Bilateral foot pain [facility] - Sonali Boyd PAC Upcoming Appointments JUNIOR ART DIRECTOR - Recent and Past Visits Recent Visits Date Type Provider Dept 11/30/20 Office Visit Sonali Retana PAC [facility] 10/19/20 Telemedicine Sonali Retana PAC [facility] 10/16/20 Telemedicine Sonali Retana PAC [facility] 10/07/20 Telemedicine Sonali Retana, PAC [facility] 09/23/20 Office Visit Sonali Retana, PAC [facility] 08/06/20 Telemedicine Sonali Retana, PAC [facility] 07/14/20 Office Visit Sonali Retana, PAC [facility] 05/12/20 Office Visit Sonali Retana, PAC [facility] 03/04/20 Telemedicine Sonali Retana, PAC [facility] 02/03/20 Telemedicine Sonali Retana, PAC [facility] Showing recent visits within past 460 days with a meds authorizing provider and meeting all other requirements Future Appointments No visits were found meeting these conditions. Showing future appointments within next 90 days with a meds authorizing provider and meeting all other requirements OPEDIC DESIGNER documented in this encounter Plan of Treatment Upcoming Encounters Date Type Department Care Team (Late st Contact Info) Description 08/27/2025 10:00 AM CDT Office Visit [facility] - Ear, Nose & Throat - [place] #2 [place] [address] Soniamirtha Rosanne, PAC [address]2 [place] [address] Sabas Mukherjee MD #[address] [address] 09/23/2025 3:40 PM ORTHOPEDIC DESIGNER Office Visit [facility] - Family Medicine - [place] #2 [place] [address] SoniaSonali shannon, PAC [address] [place] [address] documented as of this encounter Visit Diagnoses Diagnosis Anxiety Anxiety state, unspecified documented in this encounter Additional Health Concerns Infection Onset Date Last Indicated Resolved Time COVID - 19 10/25/2021 10/25/2021 11/14/2021 12:1 6 AM ORTHOPEDIC DESIGNER COVID - 19 12/13/2022 12/13/2022 12/14/2022 8:04 AM ORTHOPEDIC DESIGNER Assessment Noted Time PHQ-9 Depression Total Score: 0 07/14/20 4:06 PM CDT documented as of this encounter Care Teams Fitter Machinist Relationship Specialty Start Date End Date Sonali Retana PAC [address] [place] [address] PCP - General Physician Brown Stock Washer 10/19/18 documented as of this encounter
--- OUTSIDE RECORDS SUMMARY | 2025-08-10 15:33 | XMS_ITS | Encounter Summary ---
Author Organization [facility] Address [address] [facility] [place] [address] Phone Care Team Providers Care Chinese Instructor Name Role Phone Sonali Retana Primary Care Provider + Reason for Visit * Reason Comments Medication Refill Encounter Details Date Type Department Care Team (Late st Contact Info) Description 09/10/2020 Refill [facility] #2 [place] [address] Sonali Retana PAC [address] [place] [address] Medication Refill Social History Tobacco Use Types [...] Miscellaneous Notes * Telephone Encounter - Tequila Costa, RN - 09/10/2020 2:00 PM CST Medication failed the protocol, provider to review and approve the medication order if appropriate. Last OV 08/06/20 F/U 10/13/20 UDS Compliant on 07/15/20 Earliest fill date 09/10/20 Tequila SUAZO Requested Prescriptions Pending Prescriptions Disp Refills clonazePAM (KlonoPIN) 0.5 MG Tablet [Pharmacy Med Name: CLONAZEPAM 0.5 MG TABLET] 90 Tab 2 Sig: TAKE 1 TABLET BY MOUTH THREE TIMES A DAY Not Delegated - Psychiatry: Anxiolytics - clonazepam Failed - 09/10/2020 1:49 PM Failed - This refill cannot be delegated Passed - Valid encounter within last 6 months Past Office Visits Recent Outpatient Visits 1 month ago Sinusitis, unspecified chronicity, unspecified location [facility] - Sonali Boyd PAC 1 month ago [facility] 4 months ago Well woman [facility] 6 months ago Viral illness [facility] 7 months ago Dyspnea on exertion [facility] Upcoming Appointments Future Appointments In 1 month Sonali Retana PAC [facility] [place] [facility] - Recent and Past Visits Recent Visits Date Type Provider Dept 08/06/20 Telemedicine Sonali Retana PAC [facility] 07/14/20 Office Visit Sonali Retana PAC [facility] 05/12/20 Office Visit Sonali Retana PAC [facility] 03/04/20 Telemedicine Sonali Retana PAC [facility] 02/03/20 Telemedicine Sonali Retana PAC [facility] 01/17/20 Office Visit Sonali Retaan, PAC [facility] 11/14/19 Office Visit Sonali Retana PAC [facility] 10/25/19 Office Visit Sonali Retana PAC [facility] [place] 08/15/19 Office Visit Sonali Retana PAC [facility] [place] Showing recent visits within past 460 days with a meds authorizing provider and meeting all other requirements Future Appointments Date Type Provider Dept 10/13/20 Appointment Sonali Retana PAC [facility] Showing future appointments within next 90 days with a meds authorizing provider and meeting all other requirements NG MACHINE OPERATOR PRODUCTION documented in this encounter Plan of Treatment Upcoming Encounters Date Type Department Care Team (Late st Contact Info) Description 08/27/2025 10:00 AM CDT Office Visit [facility] - Ear, Nose & [facility]at - [place] #2 [facility] [place] [address] Sonali Retana, KVNG #2 [place] [address] Sabas Mukherjee MD #[address] [address] 09/23/2025 3:40 PM HONING MACHINE OPERATOR PRODUCTION Office Visit [facility] - Family Medicine - [place] #2 [place] [address] Sonali Retana PAC [address] [place] [address] documented as of this encounter Visit Diagnoses Diagnosis Anxiety Anxiety state, unspecified documented in this encounter Additional Health Concerns Infection Onset Date Last Indicated Resolved Time COVID - 19 10/25/2021 10/25/2021 11/14/2021 12:1 6 AM HONING MACHINE OPERATOR PRODUCTION COVID - 19 12/13/2022 12/13/2022 12/14/2022 8:04 AM HONING MACHINE OPERATOR PRODUCTION Assessment Noted Time PHQ-9 Depression Total Score: 0 07/14/20 4:06 PM CDT documented as of this encounter Care Teams Chinese Instructor Relationship Specialty Start Date End Date Sonali Retana, KVNG #[address] [place] [address] PCP - General Physician Pad Machine Feeder 10/19/18 documented as of this encounter
--- OUTSIDE RECORDS SUMMARY | 2025-08-10 15:33 | XMS_ITS | Encounter Summary ---
Author Organization [facility] Address [address] [place] [place] [address] Phone Care Team Providers Care Automotive Worker Name Role Phone Sonali Retana Primary Care Provider + Encounter Details Date Type Department Care Team (Late st Contact Info) Description 06/18/2025 Telephone [facility] Mammography [address] [place] [address] Sonali Retana, PAC [address] [place] [address] Social History Tobacco Use Types Packs/Day Years Used Date Smoking Tobacco: Every Day Cigarettes 1 23 Last attempted to quit: 02/12/2020 Smokeless Tobacco: Never Comments:Iris been smoking si nce i was 11 Alcohol Use Standard Drinks/Week Comments No 0 (1 standard drink = 0.6 oz pur e alcohol) [facility] Utilities Answer Date Recorded In the past 12 months has [employer] electric, gas, oil, or water company threatened to shut off services in your home? Patient declined 04/21/2024 Social Connection and Isolation Panel Answer Date Recorded In a typical week, how many times do you talk on the phone with family, friends, or neighbors? Patient declined 04/21/2024 How often do you get togethe r with friends or relatives? Patient declined 04/21/2024 How often do you attend sikh or buddhist serv ices? Never 04/21/2024 Do you belong to any clubs o r organizations such as sikh groups, unions, fraternal or athletic groups, or [...] Total Score - Questions 1-9 18 10/07 [facility] - Occupational Stress Questionnaire Answer Date [...] any time in the past 12 [facility], were you homeless or living in a longterm (including now)? No 04/21/2024 Education Answer Date [...] encounter Miscellaneous Notes * Telephone Encounter - Lindsey Marques RMA - 06/18/2025 9:33 AM CDT Patient was given the option to have her orders sent to another facility that can get her in soonerfor her DX mamm and US. She has chosen to wait and get it done here. Orders deferred and we will call as soon as we have a new template ready. HT documented in this encounter Plan of Treatment Upcoming Encounters Date Type Department Care Team (Late st Contact Info) Description 08/27/2025 10:00 AM CDT Office Visit [facility] - Ear, Nose & Throat [facility] [address] [place] [address] Sonali Retana, KVNG [address] [place] [address] Sabas Mukherjee MD [address] [address] 09/23/2025 3:40 PM COMMANDING OFFICER HOMIC[employer]QUAD Office Visit [facility] - Family Medicine [facility] [address] [place] [address] Sonali Retana PAC [address] [place] [address] documented as of this encounter Visit Diagnoses Not on filedocumented in this encounter Additional Health Concerns Assessment Noted Time PHQ-9 Depression Total Score: 18 021 1:00 PM COMMANDING OFFICER [employer]OM[employer]QU[employer] documented as of this encounter Care Teams Automotive Worker Relationship Specialty Start Date End Date Sonali Retana PAC [address] [place] [address] PCP - General Physician Link And Link Knitting Machine Operator 10/19/18 documented as of this encounter
--- OUTSIDE RECORDS SUMMARY | 2025-08-10 15:33 | XMS_ITS | Encounter Summary ---
Author Organization [facility] Address [address] [facility] [place] [address] Phone Care Team Providers Care Machine Tool Technology Instructor Name Role Phone Sonali Retana Primary Care Provider + Reason for Visit * Reason Comments Medication Refill Encounter Details Date Type Department Care Team (Late st Contact Info) Description 02/15/2024 Refill [facility] - Family Medicine [facility] [address] [place] [address] Sonali Retana PAC [address] [place] [address] Medication Refill Social History Tobacco Use Types [...] encounter Miscellaneous Notes * Telephone Encounter - SeBeverly lopez RN - 02/16/2024 8:44 AM CDT Last Vitamin D - 11/16/23 - L Medication failed the protocol, provider to review and approve the medication order if appropriate. Requested Prescriptions Pending Prescriptions Disp Refills ergocalciferol (VITAMIN D) 54681 UNIT Capsule [Pharmacy Med Name: VITAMIN D2 1.25MG(50,000 UNIT)] 4Capsule 2 Sig: TAKE 50,000 UNITS BY MOUTH ONCE A WEEK FOR 12 DOSES. Vitamin Supplements (Adult) Protocol Failed - 02/15/2024 1:16 PM Failed - Active on medication list Failed - Vitamin D dose not greater than 1.25mg Passed - Visit with relevant provider in past 12 months or upcoming 90 days Recent Visits Date Type Provider Dept 10/23/23 Office Visit Sonali Retana PAC [facility] 07/26/23 Telemedicine Merle Gibson MD [facility] Showing recent visits within past 365 days and meeting all other requirements Future Appointments Date Type Provider Dept 04/23/24 Appointment Sonali Retana PAC [facility] Showing future appointments within next 90 days and meeting all other requirements documented in this encounter Plan of Treatment Upcoming Encounters Date Type Department Care Team (Late st Contact Info) Description 08/27/2025 10:00 AM CDT Office Visit [facility] - Ear, Nose & Throat [facility] [address] [facility] [place] [address] Sonali Retana PAC [address] [place] [address] Sabas Mukherjee MD [address] [facility] [address] [address] 09/23/2025 3:40 PM FITNESS SERVICES MANAGER Office Visit [facility] - Family Medicine - [place] [address] [place] [address] Sonali Retana PAC [address] [place] [address] documented as of this encounter Visit Diagnoses Diagnosis Low vitamin D level documented in this encounter Additional Health Concerns Assessment Noted Time PHQ-9 Depression Total Score: 18 021 1:00 PM FITNESS SERVICES MANAGER documented as of this encounter Care Teams Machine Tool Technology Instructor Relationship Specialty Start Date End Date Sonali Retana PAC [address] [place] [address] PCP - General Physician Home Health Care Worker 10/19/18 documented as of this encounter
== END 2025-08-10 15:36 | disposition left against medical advice (07) ==
LOC: ANHED 15:30
PROVIDERS: Emergency Provider Emergency Medicine; PCP Physician Assistant
DX: R07.9 Chest pain, unspecified (principal)
CPT/HCPCS: 36415; 71046; 80053; 83690; 84484; 85025; 85610; 85730; 93005; 99199